=== PATIENT | female | born 1975 | race African-American/Black ===

== ENCOUNTER 2016-07-15 17:06 | Emergency (ER) | payer SELFPAY ==
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
[2016-07-15 17:13] LABS: INFLUENZA A NEG (NEG)
[2016-07-15 17:14] LABS: INFLUENZA B NEG (NEG)
[2016-12-23] MEDS ORDERED: NO MEDICATIONS (20:16)
== END 2016-07-15 17:46 | disposition home or self-care (01) ==
LOC: SED 17:06
PROVIDERS: Emergency Medicine
DX: I88.8 Other nonspecific lymphadenitis (principal); F17.210 Nicotine dependence, cigarettes, uncomplicated; Z90.49 Acquired absence of other specified parts of digestive tract; Z90.89 Acquired absence of other organs; Z88.5 Allergy status to narcotic agent; Z88.8 Allergy status to other drugs, medicaments and biological substances
CPT/HCPCS: 72040; 87651; 87804; 99283

== ENCOUNTER 2016-08-17 17:50 | Emergency (ER) | payer SELFPAY ==
[2016-12-23] MEDS ORDERED: NO MEDICATIONS (20:16)
== END 2016-08-17 19:23 | disposition home or self-care (01) ==
LOC: SED 17:50
DX: L73.9 Follicular disorder, unspecified (principal); Z90.49 Acquired absence of other specified parts of digestive tract; F17.200 Nicotine dependence, unspecified, uncomplicated; Z88.5 Allergy status to narcotic agent; Z88.8 Allergy status to other drugs, medicaments and biological substances
CPT/HCPCS: 84703; 99282

== ENCOUNTER 2016-09-17 14:26 | Emergency (ER) | payer SELFPAY ==
--- NOTE | ~2016-09-17 | US134 ---
[facility]. [facility] A Service of [facility] & [facility] RADIOLOGY TEXT RESULTS PATIENT: LUZ LUCIO LOCATION: SED : 79 UNIT #: [id number] AGE: [address]: Tomy Pereira SEX: F ORDER DR: [id number] [address] [address] [id number] E MR#: [id number] Acc #: [id number] NAME: LUZ LUCIO : 1975 SEX: F STUDY DATE/TIME: 09/17/2016 18:29 UNIT: SED ROOM: STUDY DESCRIPTION: US Transvaginal Attending Physician: Tomy Pereira P.A.-C. Ordering Physician: Tomy Pereira P.A.-C. Primary Care Physician: Primary Care Physician No MEDICAL IMAGING REPORT This report is preliminary unless electronic signature is present. EXAM Pelvic sonogram CLINICAL HISTORY Pelvic pain x1 day. Quantitative HCG of 116. FINDINGS Real-time examination demonstrates a nongravid uterus measuring 7.7 cm x 4.4 cm x 5.8 cm. Endometrium appears normal. The right and left ovaries appear normal. No free fluid or adnexal masses. IMPRESSION Normal pelvic sonogram. Given the positive HCG and absence of a defined intrauterine this would represent a of undetermined location. This may represent a failed IUP, early IUP or possibly ectopic. Clinical followup recommended. Dictated by... Geraldo Hsu M.D. THIS IS AN ELECTRONICALLY VERIFIED REPORT Geraldo Hsu M.D. at 09/18/2016 2:48 PM ZOEY/tarah TD: 09/18/2016 01:40 JOB #: [id number] MEDICAL IMAGING REPORT Page 1 of 1
[2016-09-17 15:54] LABS: URINE SOURCE CLEAN CATCH
[2016-09-17 15:59] LABS: MICRO INDICATED? NO; URINE APPEARANCE CLEAR; URINE BILIRUBIN NEG (NEG); URINE BLOOD NEG (NEG); URINE COLOR YELLOW; URINE GLUCOSE NEG (NORM); URINE KETONE NEG (NEG); URINE LEUKOCYTE ESTERASE NEG (NEG); URINE NITRATE NEG (NEG); URINE PH 5.5 (5-8); URINE PROTEIN NEG (NEG); URINE UROBILINOGEN 0.2 MG/DL (NORM)
[2016-09-17 16:37] LABS: BASOPHIL% 0.3 % (0-2.5); DIFF IND NO; EOSINOPHIL% 0.3 % (0.0-7.0); HEMATOCRIT 42.8 % (35.0-45.0); HEMOGLOBIN 14.4 gm/dL (12.0-16.0); LYMPHOCYTE# 3.8 X10e3 (1.0-3.5); LYMPHOCYTE% 31.3 % (17.0-45.0); MEAN CORPUSCULAR HEMOGLOBIN 29.6 PG (28-34); MEAN CORPUSCULAR HGB CONC 33.6 g/dL (30-36); MEAN PLATELET VOLUME 8.9 FL (6.5-11.5); MONOCYTE# 0.6 X10e3 (0-1.0); MONOCYTE% 5.2 % (3.0-12.0); NEUTROPHIL# 7.7 X10e3 (1.5-7.1); NEUTROPHIL% 62.9 % (40-75); PLATELET COUNT 266 X10e3 (140-420); RED BLOOD COUNT 4.86 X10e (3.90-5.30); RED CELL DISTRIBUTION WIDTH 13.1 % (11.0-15.5); WHITE BLOOD COUNT 12.2 X10e3 (4.0-10.5)
[2016-09-17 16:47] LABS: BUN/CREATININE RATIO 11.42; CALCIUM SERUM 9.5 mg/dL (8.4-10.2); CREATININE SERUM 0.7 mg/dL (0.6-1.4); GLOM FILT RATE Estimated 126.5 mL/min (>60); POTASSIUM 3.9 mmol/L (3.5-5.1)
[2016-12-23] MEDS ORDERED: NO MEDICATIONS (20:16)
== END 2016-09-17 19:23 | disposition home or self-care (01) ==
LOC: SED 14:26
PROVIDERS: Emergency Medicine; Physician Assistant
DX: O99.89 Other specified diseases and conditions complicating pregnancy, childbirth and the puerperium (principal); F17.210 Nicotine dependence, cigarettes, uncomplicated; Z90.49 Acquired absence of other specified parts of digestive tract; Z90.89 Acquired absence of other organs
CPT/HCPCS: 36415; 76830; 80048; 81003; 84702; 84703; 85025; 86900; 86901; 96360; 99284; J1200